=== PATIENT | female | born 1965 | race Caucasian/White ===

== ENCOUNTER 2020-12-13 14:49 | Outpatient (CLI) | payer OTHER, SELFPAY ==
--- NOTE | 2020-12-13 10:00 | MM_ITS ---
WS: [id number] BILATERAL DIGITAL SCREENING MAMMOGRAPHY WITH CAD CLINICAL INFORMATION: screening HISTORY: Screening mammogram. No current complaints. COMPARISON: TECHNIQUE: Bilateral CC and MLO views. FINDINGS: Scattered fibroglandular densities bilaterally. No suspicious focal mass, asymmetry, calcifications, or architectural distortion. No evidence of malignancy. MM/[place] [id number] IMPRESSION: BI-RADS: 1-Negative FOLLOW UP: 1 Year Follow-up Recommend return to annual screening mammography.
== END 2020-12-13 14:50 | disposition home or self-care (01) ==
LOC: RADSHAW 14:54
PROVIDERS: PCP Family Medicine; Visit Provider Family Medicine
DX: Z12.31 Encounter for screening mammogram for malignant neoplasm of breast (principal)
CPT/HCPCS: 77067

== ENCOUNTER 2021-06-14 00:41 | Emergency (ER) | payer OTHER, SELFPAY ==
[2021-06-14 00:42] VITALS: BP 145/79; PULSE 75; RESP 20; TEMP 36.8; O2SAT 96; BMI 33.5
--- NOTE | 2021-06-14 00:44 | CTR_ITS ---
PROCEDURE INFORMATION: Exam: CT Abdomen And Pelvis Without Contrast Exam date and time: 06/14/2021 12:44 AM Age: 56 years old Clinical indication: Nausea and vomiting; Abdominal pain; Flank; Left; Prior surgery; Surgery type: Gb, hyst; Additional info: L flank pain TECHNIQUE: Imaging protocol: Computed tomography of the abdomen and pelvis without contrast. Radiation optimization: All CT scans at this facility use at least one of these dose optimization techniques: automated exposure control; mA and/or kV adjustment per patient size (includes targeted exams where dose is matched to clinical indication); or iterative reconstruction. COMPARISON: MRI Lumbar Spine w/o [id number] 08/02/2016 7:39 AM RADIATION DOSE METRICS: Total DLP (mGy-cm): 1585.44 FINDINGS: Lungs: The lung bases are clear. No effusion Mediastinal space: Small hiatal hernia. Liver: There is fatty infiltration of the liver. Gallbladder and bile ducts: There has been a cholecystectomy. Pancreas: Pancreas is normal. Spleen: Spleen is normal. Adrenal glands: Adrenals are normal. Kidneys and ureters: 2 mm nonobstructing left renal pelvis stone. 5 mm left distal ureteral stone with mild obstruction. Stomach and bowel: Diverticulosis without diverticulitis. Appendix: No evidence of appendicitis. Intraperitoneal space: Unremarkable. No free air. No significant fluid collection. Vasculature: Unremarkable. No abdominal aortic aneurysm. Lymph nodes: Unremarkable. No enlarged lymph nodes. Urinary bladder: Unremarkable as visualized. Reproductive: Unremarkable as visualized. Bones/joints: Unremarkable. No acute fracture. Soft tissues: Unremarkable. CT/CT kidney stone [id number] IMPRESSION: 1. 5 mm left distal ureteral stone with mild obstruction. 2. Small hiatal hernia. 3. Fatty infiltration of the liver. 4. 2 mm nonobstructing left renal pelvis stone. 5. Diverticulosis without diverticulitis. Radiation Dose CTDIVOL = (mGy): DLP = 1585.44 (mGy-cm)
[2021-06-14 01:02] LABS: Basophils # 0.1 10^3/uL (0.0-0.1); Basophils % 0.4 %; Eosinophils % 0.2 %; Hemoglobin 13.2 g/dL (11.5-15.3); Lymphocytes # 0.6 10^3/uL (0.8-4.8); Lymphocytes % 4.2 %; Mean Corpuscular HGB Conc 31.4 g/dL (30.0-36.0); Mean Corpuscular Hemoglobin 28.4 pg (28.0-34.0); Mean Corpuscular Volume 90.5 fL (81-99); Mean Platelet Volume 12.4 fL (7.4-10.4); Monocytes # 0.6 10^3/uL (0.2-0.9); Monocytes % 3.9 %; Neutrophils # 12.67 10^3/uL (1.8-7.7); Neutrophils % 90.9 %; Nucleated Red Blood Cells % 0 %; Platelet Count 295 10^3/cmm (130-400); Red Blood Count 4.64 10^6/uL (4.1-5.3); Red Cell Distribution Width 13.8 % (12.1-15.1); White Blood Count 13.9 10^3/uL (4.0-10.0)
--- NOTE | 2021-06-14 01:05 | ED_ITS ---
HPI - Abdominal Pain General: Chief Complaint: Abdominal Pain Stated Complaint: KIDNEY STONE Time Seen by Provider: 06/14/21 00:44 Source: patient Mode of arrival: ambulatory Limitations: no limitations History of Present Illness: HPI narrative: 56-year-old female history of kidney stones. She has been having left-sided flank pain severe in nature over the last 2 days. States the pain is worsened tonight she has been having vomiting. States pain is currently 9 out of 10. States she had some decreased urination as well. Denies any worsening improving factors. Denies any fevers. Associated Symptoms: Reports nausea and vomiting; Denies chills and fever(s) Review of Systems Const: Denies: fever(s), chills, body aches or change in appetite Eyes: Denies: blurry vision or eye discomfort ENMT: Denies: throat pain or dental pain Card: Denies: chest pain Resp: Denies: dyspnea GI: Reports: abdominal pain, nausea and vomiting : Reports: flank pain Musc: Denies: neck pain or back pain Skin/Breast: Denies: rash Neuro: Denies: headache(s) Psych: Denies: depression Celso/Lymph: Denies: easy bruising All/Imm: Denies: urticaria PFSH ED PFSH: Medical History Chronic migraine Irritable bowel syndrome with diarrhea Reactive airway disease Social History Smoking and tobacco status: never smoked Alcohol intake: current Alcohol intake frequency: holidays/special occasions only Physical Exam Const: COMMON NORMALS: no acute distress, patient oriented x3 and healthy appearing HENMT: COMMON NORMALS: normocephalic and atraumatic HEAD & SCALP: normocephalic and atraumatic Eye: COMMON NORMALS: Equal, round and reactive pupils present and EOMs intact bilaterally PUPIL: Yes Equal, round and reactive pupils present Neck/C-Spine: COMMON NORMALS: full ROM and supple Chest: COMMONS NORMALS: normal inspection of the chest and normal palpation of entire chest wall Resp: COMMON NORMALS: normal respiratory effort, No retractions, No use of accessory muscles and clear to auscultation bilaterally AUSCULTATION: clear to auscultation bilaterally Cardio: COMMON NORMALS: regular rate, regular rhythm and No murmurs present (Cardio) RATE: regular rate RHYTHM: regular rhythm GI: COMMON NORMALS: Normal to inspection, nondistended, normoactive bowel sounds present, Soft to palpation, non-tender and no masses PALPATION: Yes Soft to palpation Extremity: COMMON NORMALS: normal to inspection and full ROM Neuro: COMMON NORMALS: patient oriented x3, moves all extremities and no focal motor deficits Psych: COMMON NORMALS: mental status grossly normal, Normal thought process present and cooperative THOUGHT PROCESS: Normal thought process present Skin: COMMON NORMALS: no rashes or lesions noted and no wounds GENERAL SKIN EXAM: no rashes or lesions noted Course Vital Signs: Vital signs: Vital Signs Temperature 98.2 F 06/14/21 00:42 Pulse Rate 73 06/14/21 01:20 Respiratory Rate 16 06/14/21 01:20 Blood Pressure 132/74 06/14/21 01:20 Pulse Oximetry 94 06/14/21 01:20 MDM - Abdominal Pain MDM Narrative: Medical decision making narrative: Patient presents with a kidney stone. To 5 mm in distal and should pass. Her pain is much improved here. She is stable for discharge is to follow-up with urology. She is to return if worsening. Lab Data: Labs: Lab Results 06/14/21 06/14/21 06/14/21 Range/Units 00:57 00:57 02:05 WBC 13.9 H (4.0-10.0) 10^3/ uL RBC 4.64 (4.1-5.3) 10^6/u L Hgb 13.2 (11.5-15.3) g/dL Hct 42.0 (37.0-47.0) % MCV 90.5 (81-99) fL MCH 28.4 (28.0-34.0) pg MCHC 31.4 (30.0-36.0) g/dL RDW 13.8 (12.1-15.1) % Plt Count 295 (130-400) 10^3/c mm MPV 12.4 H (7.4-10.4) fL Neut % (Auto) 90.9 % Lymph % (Auto) 4.2 % [place] % (Auto) 3.9 % Eos % (Auto) 0.2 % Baso % (Auto) 0.4 % Neut # (Auto) 12.67 H (1.8-7.7) 10^3/u L Lymph # (Auto) 0.6 L (0.8-4.8) 10^3/u L [place] # (Auto) 0.6 (0.2-0.9) 10^3/u L Eos # (Auto) 0.0 (0.0-0.8) 10^3/u L Baso # (Auto) 0.1 (0.0-0.1) 10^3/u L Nucleated RBC % (a uto) 0 % Nucleated RBCs # 0.0 /100WBC Sodium 133 L (136-145) mmol/L Potassium 4.4 (3.5-5.1) mmol/L Chloride 98 (98-107) mmol/L Carbon Dioxide 23 (22-29) mmol/L Anion Gap 16.4 (5-19) BUN 19 (6-20) mg/dL Creatinine 1.4 H (0.5-0.9) mg/dL GFR Calculation 38.6 L (90-130) mL/min Glucose 159 H (65-115) mg/dL Calculated Osmolal ity 282 L (285-295) mOsm/k g Calcium 8.9 (8.5-10.5) mg/dL Total Bilirubin 0.5 (0.15-1.2) mg/dL AST 23 (0-32) U/L ALT 19 (0-33) U/L Alkaline Phosphata se 80 (35-105) IU/L Total Protein 7.3 (6.6-8.7) g/dL Albumin 4.1 (3.5-5.2) g/dL Globulin 3.2 (1.3-4.6) g/dL Urine Color Yellow (Yellow) Urine Appearance Hazy A (CLEAR) Urine pH 5 (5-7) Ur Specific Gravit y 1.025 (1.005-1.030) Urine Protein Neg (Negative) Urine Glucose (UA) Norm (Normal) Urine Ketones 2+ H (Negative) Urine Blood 3+ H (Negative) Urine Nitrate Negative (Negative) Urine Bilirubin Neg (Negative) Urine Urobilinogen 1 H (Negative) mg/dL Ur Leukocyte [place] Trace H (Negative) Urine RBC 25-40 H (0-2) /hpf Urine WBC >100 H (0-5) /hpf Ur Squamous Epith Cells 15-25 H (0-5) /hpf Amorphous Sediment Not Reportable Urine Bacteria 1+ H (NONE) /hpf Hyaline Casts 0-4 H /lpf Urine Mucus 3+ /hpf Imaging Data ^: CT Abd/Pel: Attestation: I personally reviewed and interpreted this imaging study as follows: Radiologist's impression: [address] [address] [address] Scan Report Signed Patient: Hailey Olguin Unit #: [id number] : 1965 Age/Sex: 56 / F ADM Date: 06/14/21 Loc: ER Room/Bed: Attending Dr: Ordering Provider/Ordering MD: David Zuleta MD Date of Service: 06/14/21 Procedure(s): CT kidney stone [id number] Accession Number(s): [id number] Report Number: [id number] PROCEDURE INFORMATION: Exam: CT Abdomen And Pelvis Without Contrast Exam date and time: 06/14/2021 12:44 AM Age: 56 years old Clinical indication: Nausea and vomiting; Abdominal pain; Flank; Left; Prior surgery; Surgery type: Gb, hyst; Additional info: L flank pain TECHNIQUE: Imaging protocol: Computed tomography of the abdomen and pelvis without contrast. Radiation optimization: All CT scans at this facility use at least one of these dose optimization techniques: automated exposure control; mA and/or kV adjustment per patient size (includes targeted exams where dose is matched to clinical indication); or iterative reconstruction. COMPARISON: MRI Lumbar Spine w/o [id number] 08/02/2016 7:39 AM RADIATION DOSE METRICS: Total DLP (mGy-cm): 1585.44 FINDINGS: Lungs: The lung bases are clear. No effusion Mediastinal space: Small hiatal hernia. Liver: There is fatty infiltration of the liver. Gallbladder and bile ducts: There has been a cholecystectomy. Pancreas: Pancreas is normal. Spleen: Spleen is normal. Adrenal glands: Adrenals are normal. Kidneys and ureters: 2 mm nonobstructing left renal pelvis stone. 5 mm left distal ureteral stone with mild obstruction. Stomach and bowel: Diverticulosis without diverticulitis. Appendix: No evidence of appendicitis. Intraperitoneal space: Unremarkable. No free air. No significant fluid collection. Vasculature: Unremarkable. No abdominal aortic aneurysm. Lymph nodes: Unremarkable. No enlarged lymph nodes. Urinary bladder: Unremarkable as visualized. Reproductive: Unremarkable as visualized. Bones/joints: Unremarkable. No acute fracture. Soft tissues: Unremarkable. CT/CT kidney stone [id number] IMPRESSION: 1. 5 mm left distal ureteral stone with mild obstruction. 2. Small hiatal hernia. 3. Fatty infiltration of the liver. 4. 2 mm nonobstructing left renal pelvis stone. 5. Diverticulosis without diverticulitis. Discharge Plan Discharge Patient Disposition: Home Clinical Impression: Kidney stone Condition: Stable Prescriptions: New hydrocodone-acetaminophen 5-325 mg tablet 1 tab PO Q6H PRN (Reason: pain) Qty: 14 RF: 0 ondansetron 4 mg tablet,disintegrating 4 mg PO Q6H PRN (Reason: nausea and vomiting) Qty: 14 RF: 0 No Action epinephrine [EpiPen] 0.3 mg/0.3 mL auto-injector 0.3 mg IM Q10M PRNRF: 0 Vicks Sinex Ultra Fine Mist 12 0.05 % mist 2 spray intranasal Q12H PRNRF: 0 cyanocobalamin (vitamin B-12) 1,000 mcg capsule 1,000 mcg PO DAILY RF: 0 cholecalciferol (vitamin D3) 25 mcg (1,000 unit) capsule 25 mcg PO DAILY RF: 0 sumatriptan succinate [Imitrex] 100 mg tablet See Rx Instructions PO .as needed 30 Days Qty: 60 RF: 1 guanfacine 1 mg tablet 1 mg PO DAILY Qty: 90 RF: 1 albuterol sulfate [ProAir HFA] 90 mcg/actuation HFA aerosol inhaler 2 puff inhalation Q6H PRN (Reason: shortness of breath or wheezing) 90 Days Qty: 18 RF: 3 fluticasone propionate 50 mcg/actuation spray,suspension 2 spray intranasal DAILY Qty: 16 RF: 4 dextroamphetamine-amphetamine [Adderall] 10 mg tablet 10 mg PO BID 30 Days Qty: 60 RF: 0 bupropion HCl 100 mg tablet 100 mg PO .ONCE A DAY 30 Days Qty: 30 RF: 1 Discharge Orders: Discharge ED (Routine); Ordered 06/14/21 Ordered By: David Zuleta Referrals: Oliver Chandler MD [Primary Care Provider] - Pedro Luis Stiles MD [Physician] - 1-3 days Discharge Diet: Advance as tolerated Discharge Activity: Resume usual activity Patient Instructions: Kidney Stones (ED), Opioid Safety Coding Level of Care Code ED Residential Sales Consultant for Chg Fwd Exam Comprehensive
[2021-06-14] MEDS: ondansetron 2 mg/ML SDV 2 mL 4 MG IVP (01:12)
[2021-06-14] MEDS: HYDROmorphone 1 mg/mL INJ 1 mL IVP (01:12)
[2021-06-14] MEDS: sodium chloride 0.9% 1,000 ML 999 ML IV ×2 (01:13→02:30)
[2021-06-14 01:20] VITALS: BP 132/74; PULSE 73; RESP 16; O2SAT 94
[2021-06-14 01:22] LABS: Aspartate Amino Transferase 23 U/L (0-32)
[2021-06-14 01:36] LABS: Alanine Aminotransferase 19 U/L (0-33); Albumin Level 4.1 g/dL (3.5-5.2); Alkaline Phosphatase 80 IU/L (35-105); Anion Gap 16.4 (5-19); Blood Urea Nitrogen 19 mg/dL (6-20); Calcium 8.9 mg/dL (8.5-10.5); Carbon Dioxide 23 mmol/L (22-29); Chloride 98 mmol/L (98-107); Globulin 3.2 g/dL (1.3-4.6); Glomerular Filtration Rate 38.6 mL/min (90-130); Glucose 159 mg/dL (65-115); Osmolality Calculated 282 mOsm/kg (285-295); Potassium 4.4 mmol/L (3.5-5.1); Sodium 133 mmol/L (136-145); Total Bilirubin 0.5 mg/dL (0.15-1.2); Total Protein 7.3 g/dL (6.6-8.7)
[2021-06-14 02:20] LABS: Add Urine Culture? No; Add Urine Microscopic? YES; Bacteria Urine 1+ /hpf; Bilirubin Urine Neg (Negative); Blood Urine 3+ (Negative); Glucose Urine UA Norm (Normal); Hyaline Casts Urine 0-4 /lpf; Ketones Urine 2+ (Negative); Leukocyte Esterase Urine Trace (Negative); Mucus Urine 3+ /hpf; Nitrate Urine Negative (Negative); Protein Urine Neg (Negative); RBC Urine 25-40 /hpf (0-2); Specific Gravity, Urine 1.025 (1.005-1.030); Squamous Epithelial Cell Urine 15-25 /hpf (0-5); Urine Appearance Hazy (CLEAR); Urine Color Yellow (Yellow); Urobilinogen Urine 1 mg/dL (Negative); WBC Urine >100 /hpf (0-5); pH Urine 5 (5-7)
[2021-06-14 04:10] VITALS: BP 109/78; PULSE 76; RESP 16; O2SAT 96
--- NOTE | 2021-06-14 09:14 | DCPLANNER ---
marketing content manager had message to schedule a follow up appointment for patient with Dr. stiles. marketing content manager called the office of Dr. Stiles, spoke with Stephane, gave clinic patients information. marketing content manager was told that patients information would be printed and reviewed. Clinic will call patient with appointment information.
--- NOTE | 2021-06-19 13:24 | DCPLANNER ---
Patient has a follow up appointment scheduled for Saturday, July 03, 2021 at 9:[address] Stiles. Clinic will call patient with appointment information.
--- NOTE | 2021-07-06 13:11 | DCPLANNER ---
Patient had a follow up appointment scheduled for 07.03.[address] Stiles - patient did attend appointment.
== END 2021-06-14 04:11 | disposition home or self-care (01) ==
PROVIDERS: Emergency Provider Emergency Medicine; PCP Family Medicine
DX: N20.2 Calculus of kidney with calculus of ureter (principal)
CPT/HCPCS: 74176; 80053; 81001; 85025; 96361; 96374; 96375; 99283; J1170; J2405; J7030

== ENCOUNTER 2021-07-03 08:06 | Outpatient (CLI) | payer OTHER, SELFPAY ==
--- NOTE | 2021-07-03 08:00 | XRR_ITS ---
PROCEDURE INFORMATION: Exam: XR Abdomen Exam date and time: 07/03/2021 8:00 AM Age: 56 years old Clinical indication: Condition or disease; Kidney or ureter condition; Calculus (stone) in kidney; Prior surgery; Surgery type: Gb, hernia, bladder; Additional info: Calculus of kidney TECHNIQUE: Imaging protocol: XR of the abdomen. Views: Frontal supine view of the abdomen. 1 View. Total images: 2 COMPARISON: CT kidney stone [id number] 06/14/2021 1:00 AM FINDINGS: Tubes, catheters and devices: Mesh repair of the anterior abdominal wall is noted. Gastrointestinal tract: Bowel gas pattern is nondistended and nonobstructive. Organs: 3 mm irregular calcification in the left pelvis may represent a left UVJ stone versus bladder calculi. Surgical clips are present in the right upper quadrant which are suggestive of prior cholecystectomy. Vasculature: Incidental venous phlebolith noted in right pelvis. Bones/joints: Unremarkable. Other findings: Moderate stool burden. XR/XR KUB [id number] IMPRESSION: 3 mm irregular calcification in the left pelvis may represent a left UVJ stone versus bladder calculi.
== END 2021-07-03 08:07 | disposition home or self-care (01) ==
LOC: RAD 08:11
PROVIDERS: PCP Family Medicine; Visit Provider Urology
DX: N20.0 Calculus of kidney (principal)
CPT/HCPCS: 74018; 81003

== ENCOUNTER → 2021-11-21 13:52 | Outpatient (BNVA) | payer OTHER, SELFPAY | PROVIDERS: PCP Family Medicine; Visit Provider Family Medicine | DX: Z00.00 Encounter for general adult medical examination without abnormal findings (principal); F98.8 Other specified behavioral and emotional disorders with onset usually occurring in childhood and adolescence; E78.00 Pure hypercholesterolemia, unspecified | CPT/HCPCS: 80053; 80061; 84443; 85025 ==

== ENCOUNTER → 2023-06-04 12:30 | Outpatient (BNVA) | payer OTHER, SELFPAY | PROVIDERS: PCP Family Medicine; Visit Provider Family Medicine | DX: R53.83 Other fatigue (principal); Z79.899 Other long term (current) drug therapy | CPT/HCPCS: 80053; 84443; 84484; 85025 ==